=== PATIENT | female | born 1960 | race Caucasian/White ===

== ENCOUNTER 2019-09-24 19:08 | Emergency (ER) | payer BC, SELFPAY ==
[2019-09-24] MEDS ORDERED: Morphine 4 MG/ML VIAL ONE (19:22)
[2019-09-24] MEDS ORDERED: Adacel (T-DAP) 0.5 ML SYRINGE ONE (19:53)
--- NOTE | 2019-09-24 19:58 | RAD ---
Radiograph left forearm 2 views: DATE: 09/24/2019 Time: 7:42 PM HISTORY: 59-year-old female status post acute traumatic injury to left forearm. FINDINGS: Oblique fracture with minimal comminution at junction between middle and distal thirds of the ulnar d iaphysis, with approximately one fourth shaft width radial displacement and approximately 1 6 shaft width anterior displacement, of distal fragment, without significant angulation. No radial fracture i dentified. No dislocation at elbow or wrist. IMPRESSION: Acute, traumatic, mildly displaced fracture of mid-distal ulnar shaft.
== END 2019-09-24 20:55 | disposition home or self-care (01) ==
LOC: ERS 19:08
DX: S52.202A Unspecified fracture of shaft of left ulna, initial encounter for closed fracture (principal); X58.XXXA Exposure to other specified factors, initial encounter
CPT/HCPCS: 25530; 90471; 90715; 96374; J2270

== ENCOUNTER 2020-10-02 08:31 | Outpatient (CLI) | payer BC | END 2020-10-02 08:32 | disposition home or self-care (01) | LOC: BICRAD 08:31 | PROVIDERS: ATTEND Chiropractor | DX: M53.86 Other specified dorsopathies, lumbar region (principal); M54.5 Low back pain; M79.10 Myalgia, unspecified site; M53.84 Other specified dorsopathies, thoracic region; M46.96 Unspecified inflammatory spondylopathy, lumbar region | CPT/HCPCS: 72110 ==